=== PATIENT | female | born 1980 | race Two or more races ===

== ENCOUNTER 2016-06-02 05:12 | Inpatient (IN) | payer SELFPAY ==
[~2016-06-02] VITALS: Ht 152.4 cm; Wt 78.3 kg
[2016-06-02] MEDS ORDERED: 0.9 % SODIUM CHLORIDE 10 ML DISP.SYRIN. IV PRN ×2 (06:00→09:30)
[2016-06-02] MEDS ORDERED: ONDANSETRON PF 4 MG/2 ML VIAL. IV PRN ×3 (06:00→09:30)
[2016-06-02] MEDS ORDERED: TERBUTALINE 1 MG/ML VIAL. SQ PRN (06:00)
[2016-06-02] MEDS ORDERED: CITRIC ACID/SODIUM CITRATE 30 ML SOLUTION. PO ONE (06:00)
[2016-06-02] MEDS ORDERED: IBUPROFEN 600 MG TABLET. PO PRN (06:00)
[2016-06-02] MEDS ORDERED: OXYTOCIN 30 UNIT/500 ML PREMIX 500 ML IV PRN ×2 (06:00→09:30)
[2016-06-02] MEDS ORDERED: PROCHLORPERAZINE 10 MG/2 ML VIAL. IV PRN (06:15)
[2016-06-02] MEDS ORDERED: MORPHINE SULFATE 2 MG/ML DISP.SYRIN. IV PRN (06:15)
[2016-06-02] MEDS ORDERED: FENTANYL PF 100 MCG/2 ML VIAL. IV PRN ×2 (06:15)
[2016-06-02 06:27] LABS: BASO # 0.1 x10^3/uL (0.0-0.2); BASO % 1 % (0-3); EOS % 2 % (0-3); HEMOGLOBIN 11.4 g/dL (12.0-15.5); LYMPH # 3.6 x10^3/uL (1.0-4.8); LYMPH % 31 % (24-48); MEAN CORPUSCULAR HEMOGLOBIN 26 pg (25-35); MEAN CORPUSCULAR HGB CONC 33 g/dL (31-37); MEAN CORPUSCULAR VOLUME 81 fL (79-100); MONO % 7 % (0-9); NEUT % 60 % (31-73); PLATELET COUNT 347 x10^3/uL (140-400); RED BLOOD COUNT 4.35 x10^6/uL (3.50-5.40); RED CELL DISTRIBUTION WIDTH 20.8 % (11.5-14.5); WHITE BLOOD COUNT 11.6 x10^3/uL (4.0-11.0)
[2016-06-02] MEDS ORDERED: IV RINGERS,LACTATED 1000ML 1,000 ML IV SCH (06:30)
[2016-06-02] MEDS ORDERED: LIDOCAINE 1% 1 ML SYRINGE. ID PRN (06:30)
[2016-06-02] MEDS ORDERED: HYDROMORPHONE 2 MG/ML VIAL. IV PRN (06:30)
[2016-06-02 06:47] VITALS: BP 131/87
[2016-06-02] MEDS: IV RINGERS,LACTATED 1000ML 1,000 ML IV SCH ×3 (07:28→18:17)
[2016-06-02 07:55] LABS: BILIRUBIN,URINE NEGATIVE (NEG); GLUCOSE,URINE NEGATIVE (NEG); NITRITE,URINE NEGATIVE (NEG); PROTEIN,URINE NEGATIVE (NEG-TRACE); UROBILINOGEN,URINE 0.2 mg/dL (0.2 mg/dL)
[2016-06-02] MEDS ORDERED: MORPHINE PF 5 MG/10 ML VIAL. ONE (08:02)
[2016-06-02 08:14] LABS: BACTERIA,URINE MODERATE /HPF (0-FEW); RBC,URINE 0 /HPF (0-2); SQUAMOUS EPITHELIAL CELL,UR MOD /LPF
[2016-06-02] MEDS ORDERED: FENTANYL PF 100 MCG/2 ML VIAL. ONE (08:17)
[2016-06-02] MEDS ORDERED: FAMOTIDINE 20 MG/2 ML VIAL ONE (08:25)
[2016-06-02] MEDS ORDERED: ONDANSETRON PF 4 MG/2 ML VIAL. ONE (08:25)
[2016-06-02] MEDS ORDERED: OXYTOCIN 10 UNIT/ML VIAL. ONE ×3 (08:28)
[2016-06-02] MEDS ORDERED: PHENYLEPHRINE in 0.9% NACL PF 1 MG/10 ML DISP.SYRIN. IV ONE (09:29)
[2016-06-02] MEDS ORDERED: MAGNESIUM HYDROXIDE 2,400 MG/30 ML ORAL.SUSP. PO PRN (09:30)
[2016-06-02] MEDS ORDERED: MMR per PROTOCOL. MC PRN (09:30)
[2016-06-02] MEDS ORDERED: DOCUSATE SODIUM 100 MG CAPSULE PO PRN (09:30)
[2016-06-02] MEDS ORDERED: DIPHENHYDRAMINE ORAL ELIXIR 12.5 MG/5 ML. PO PRN (09:30)
[2016-06-02] MEDS ORDERED: ZOLPIDEM 5 MG TABLET. PO PRN (09:30)
[2016-06-02] MEDS ORDERED: MAG HYDROX/ALUMINUM HYD/SIMETH 30 ML ORAL.SUSP PO PRN (09:30)
--- NOTE | 2016-06-02 09:31 | PDOC ---
BRIEF OPERATIVE NOTE Pre-Op Diagnosis TIUP Desires RC/S Post-Op Diagnosis Same Procedure Performed RLTC/S Surgeon Collin Anesthesia Type: Regional Blood Loss 800cc Specimens Obtained none Findings Male 10/2 Complications None MADI PAGAN MD Jun 02, 2016 09:31
[2016-06-02 09:56] LABS: PLT ESTIMATE ADEQUATE (ADEQUATE)
[2016-06-02 09:59] LABS: ANISOCYTOSIS MOD
[2016-06-02 12:00] VITALS: BP 111/73
[2016-06-02] MEDS: KETOROLAC TROMETHAMINE 30 MG/ML SYRINGE. IV PRN ×2 (12:18→22:40)
[2016-06-02 12:30] VITALS: BP 114/77
[2016-06-02 13:00] VITALS: BP 118/77
[2016-06-02 14:19] VITALS: BP 116/74
[2016-06-02] MEDS: CEFAZOLIN SODIUM 1 GM in IV NORMAL SALINE 50ML 50 ML IV SCH (18:16)
[2016-06-02 21:00] VITALS: BP 117/78
[2016-06-02] MEDS: IBUPROFEN 800 MG TABLET. PO SCH (22:00)
[2016-06-03] MEDS: CEFAZOLIN SODIUM 1 GM in IV NORMAL SALINE 50ML 50 ML IV SCH (01:45)
[2016-06-03] MEDS: IV RINGERS,LACTATED 1000ML 1,000 ML IV SCH (01:46)
[2016-06-03 02:00] VITALS: BP 112/76
[2016-06-03 05:16] LABS: BASO # 0.1 x10^3/uL (0.0-0.2); BASO % 1 % (0-3); EOS % 1 % (0-3); HEMATOCRIT 27.1 % (36.0-47.0); HEMOGLOBIN 8.8 g/dL (12.0-15.5); LYMPH # 3.3 x10^3/uL (1.0-4.8); LYMPH % 30 % (24-48); MEAN CORPUSCULAR HEMOGLOBIN 27 pg (25-35); MEAN CORPUSCULAR HGB CONC 33 g/dL (31-37); MEAN CORPUSCULAR VOLUME 82 fL (79-100); MONO % 7 % (0-9); NEUT % 61 % (31-73); PLATELET COUNT 249 x10^3/uL (140-400); RED CELL DISTRIBUTION WIDTH 20.5 % (11.5-14.5); WHITE BLOOD COUNT 10.8 x10^3/uL (4.0-11.0)
[2016-06-03] MEDS ORDERED: CEFAZOLIN 2GM PREMIX 50 ML IV ONE (06:00)
[2016-06-03 06:29] VITALS: BP 104/62
[2016-06-03] MEDS: DOCUSATE SODIUM 100 MG CAPSULE. PO PRN (08:34)
[2016-06-03] MEDS: IBUPROFEN 800 MG TABLET. PO SCH ×2 (08:34→14:45)
[2016-06-03] MEDS: OXYCODONE/APAP 5/325 TABLET. PO PRN ×3 (08:34→16:54)
[2016-06-03 12:57] VITALS: BP 110/66
[2016-06-03] MEDS: FERROUS SULFATE 325 MG TABLET PO SCH (16:54)
[2016-06-03 17:31] VITALS: BP 110/68
[2016-06-03 23:00] VITALS: BP 115/79
[2016-06-04] MEDS: OXYCODONE/APAP 5/325 TABLET. PO PRN ×3 (01:22→17:38)
[2016-06-04 05:10] VITALS: BP 129/89
[2016-06-04] MEDS: SIMETHICONE 80 MG TAB.CHEW PO PRN ×2 (05:15→14:04)
[2016-06-04] MEDS: DOCUSATE SODIUM 100 MG CAPSULE. PO PRN (08:23)
[2016-06-04] MEDS: FERROUS SULFATE 325 MG TABLET PO SCH ×2 (08:23→17:34)
[2016-06-04 11:13] VITALS: BP 139/80
[2016-06-04] MEDS: IBUPROFEN 800 MG TABLET. PO SCH (14:04)
[2016-06-04 16:20] VITALS: BP 110/71
--- NOTE | 2016-06-04 18:21 | PDOC ---
OB Progress Note Date of Service 06/04/16 Time of Evaluation 0 Problem List Problems Medical Problems: (1) Status: Acute Notes PT. feeling well. Pain controlled. Lab Laboratory Tests Test 06/03/16 04:57 White Blood Count 10.8x10^3/uL (4.0-11.0) Red Blood Count 3.30x10^6/uL (3.50-5.40) Hemoglobin 8.8g/dL (12.0-15.5) Hematocrit 27.1% (36.0-47.0) Mean Corpuscular Volume 82fL (79-100) Mean Corpuscular Hemoglobin 27pg (25-35) Mean Corpuscular Hemoglobin Concent 33g/dL (31-37) Red Cell Distribution Width 20.5% (11.5-14.5) Platelet Count 249x10^3/uL (140-400) Neutrophils (%) (Auto) 61% (31-73) Lymphocytes (%) (Auto) 30% (24-48) Monocytes (%) (Auto) 7% (0-9) Eosinophils (%) (Auto) 1% (0-3) Basophils (%) (Auto) 1% (0-3) Neutrophils # (Auto) 6.6x10^3uL (1.8-7.7) Lymphocytes # (Auto) 3.3x10^3/uL (1.0-4.8) Monocytes # (Auto) 0.8x10^3/uL (0.0-1.1) Eosinophils # (Auto) 0.1x10^3/uL (0.0-0.7) Basophils # (Auto) 0.1x10^3/uL (0.0-0.2) Medications Current Medications Sodium Chloride 3 ml 3 ml QSHIFT PRN IV AFTER MEDS AND BLOOD DRAWS; Start 06/02 at 06:00; Stop 06/03/16 at 12:32; Status DC Lactated Ringer's (Iv Lactated Ringers) 1,000 ml @ 125 mls/hr Q8H IV Last administered on 06/03/16t 01:46; Start 06/02/16 at 06:00; Stop 06/03/16 at 12:32 ; Status DC Ondansetron HCl (Zofran) 4 mg PRN Q4HRS PRN IV NAUSEA/VOMITING; Start 06/02/16 at 06:00; Stop 06/03/16 at 12:32; Status DC Terbutaline Sulfate 0.25 mg 0.25 mg 1X PRN PRN SQ SEE COMMENTS; Start 06/02/16 at 06:00; Stop 06/03/16 at 05:59; Status DC Oxytocin/Sodium Chloride (Oxytocin Premix Infusion) 500 ml @ 0 mls/hr CONT PRN PRN IV Post delivery bleeding; Start 06/02/16 at 06:00; Stop 06/03/16 at 12:32; Status DC Ibuprofen 600 mg 600 mg PRN Q6HRS PRN PO PAIN; Start 06/02/16 at 06:00 Cefazolin Sodium/ Dextrose (Ancef 2gm Premix) 50 ml @ 100 mls/hr 1X ONCE IV Last administered on 06/02/16 07:27; Start 06/03/16 at 06:00; Stop 06/03/16 at 12:32; Status DC Citric Acid/ Sodium Citrate (Bicitra) 30 ml 1X ONCE PO Last administered on 07:27; Start 06/02/16 at 06:00; Stop 06/02/16 at 06:01; Status DC Ondansetron HCl (Zofran) 4 mg PRN Q6HRS PRN IV Nausea; Start 06/02/16 at 06:15 ; Stop 06/03/16 at 06:14; Status DC Fentanyl Citrate (Fentanyl 2ml Vial) 25 mcg PRN Q5MIN PRN IV MILD PAIN; Start 06/02/16 at 06:15; Stop 06/03/16 at 06:14; Status DC Fentanyl Citrate (Fentanyl 2ml Vial) 50 mcg PRN Q5MIN PRN IV MODERATE PAIN; Start 06/02/16 at 06:15; Stop 06/03/16 at 06:14; Status DC Morphine Sulfate 1 mg 1 mg PRN Q10MIN PRN IV SEVERE PAIN; Start 06/02/16 at 06: 15; Stop 06/03/16 at 06:14; Status DC Lactated Ringer's (Iv Lactated Ringers) 1,000 ml @ 0 mls/hr Q0M IV ; Start at 06:30; Stop 06/02/16 at 06:31; Status DC Lidocaine HCl 2 ml 1X PRN PRN ID IV START; Start 06/02/16 at 06:30; Stop at 06:29; Status DC Hydromorphone HCl (Dilaudid) 0.5 mg PRN Q10MIN PRN IV SEV PAIN,Second choice; Start 06/02/16 at 06:30; Stop 06/03/16 at 06:29; Status DC Prochlorperazine Edisylate (Compazine) 5 mg PACU PRN PRN IV NAUSEA; Start 06/02 at 06:15; Stop 06/03/16 at 06:14; Status DC Morphine Sulfate (Morphine Preservative Free) 5 mg STK-MED ONCE .ROUTE ; Start 06/02/16 at 08:02; Stop 06/02/16 at 08:03; Status DC Fentanyl Citrate (Fentanyl 2ml Vial) 100 mcg STK-MED ONCE .ROUTE ; Start at 08:17; Stop 06/02/16 at 08:18; Status DC Ondansetron HCl (Zofran) 4 mg STK-MED ONCE .ROUTE ; Start 06/02/16 at 08:25; Stop 06/02/16 at 08:26; Status DC Famotidine (Pepcid) 20 mg STK-MED ONCE .ROUTE ; Start 06/02/16 at 08:25; Stop at 08:26; Status DC Oxytocin (Pitocin) 10 unit STK-MED ONCE .ROUTE ; Start 06/02/16 at 08:28; Stop 06/02/16 at 08:29; Status DC Oxytocin (Pitocin) 10 unit STK-MED ONCE .ROUTE ; Start 06/02/16 at 08:28; Stop 06/02/16 at 08:29; Status DC Oxytocin (Pitocin) 10 unit STK-MED ONCE .ROUTE ; Start 06/02/16 at 08:28; Stop 06/02/16 at 08:29; Status DC Phenylephrine HCl 1 mg STK-MED ONCE IV ; Start 06/02/16 at 09:29; Stop 06/02/16 at 09:30; Status DC Sodium Chloride 3 ml 3 ml QSHIFT PRN IV AFTER MEDS AND BLOOD DRAWS; Start 06/02 at 09:30; Stop 06/03/16 at 12:32; Status DC Oxytocin/Sodium Chloride (Oxytocin Premix Infusion) 500 ml @ 125 mls/hr CONT PRN IV EXCESSIVE POST- BLEEDING; Start 06/02/16 at 09:30; Stop 06/02/16 at 17:29; Status DC Ibuprofen (Motrin) 800 mg Q8HRS PO Last administered on 06/04/16 14:04; Start 06/02/16 at 14:00 Ondansetron HCl (Zofran) 4 mg PRN Q6HRS PRN IV NAUSEA/VOMITING; Start 06/02/16 at 09:30; Stop 06/03/16 at 12:32; Status DC Docusate Sodium (Colace) 100 mg PRN BID PRN PO CONSTIPATION; Start 06/02/16 at 09:30; Stop 06/02/16 at 13:57; Status DC Magnesium Hydroxide (Milk Of Magnesia) 2,400 mg PRN DAILY PRN PO CONSTIPATION; Start 06/02/16 at 09:30 Al Hydroxide/Mg Hydroxide (Mylanta Plus Xs) 30 ml PRN Q4HRS PRN PO HEARTBURN / GAS; Start 06/02/16 at 09:30 Simethicone (Gas-X) 80 mg PRN AFTMEALHC PRN PO GAS / BLOATING Last administered on 06/04/16 14:04; Start 06/02/16 at 09:30 Diphenhydramine HCl (Benadryl Oral Elixir) 12.5 mg PRN Q6HRS PRN PO ITCHING Last administered on 06/02/16 22:46; Start 06/02/16 at 09:30 Ferrous Sulfate (Feosol) 325 mg BIDWMEALS PO Last administered on 06/04/16 17: 34; Start 06/02/16 at 17:00 Zolpidem Tartrate (Ambien) 5 mg PRN QHS PRN PO INSOMNIA, MAY REPEAT X1; Start 06/02/16 at 09:30 Info (Do NOT chart on this placeholder) 1 ea PRN 1X PRN MC SEE COMMENTS; Start 06/02/16 at 09:30; Stop 06/03/16 at 12:32; Status DC Info (Do NOT chart on this placeholder) 1 ea PRN 1X PRN MC SEE COMMENTS; Start 06/02/16 at 09:30; Stop 06/03/16 at 12:32; Status DC Oxycodone/ Acetaminophen (Percocet 5/325) 1 tab PRN Q4HRS PRN PO MILD PAIN Last administered on 06/03/16 12:42; Start 06/02/16 at 09:30 Oxycodone/ Acetaminophen 2 tab 2 tab PRN Q4HRS PRN PO MODERATE PAIN, SEVERE PAIN Last administered on 06/04/16 17:38; Start 06/02/16 at 09:30 Cefazolin Sodium/ Sodium Chloride (Ancef/Iv Sodium Chloride 0.9% 50ml) 50 ml @ 100 mls/hr Q8HRS IV Last administered on 06/03/16 01:45; Start 06/02/16 at 18: 00; Stop 06/03/16 at 06:29; Status DC Ketorolac Tromethamine (Toradol) 30 mg PRN Q6HRS PRN IV PAIN Last administered on 06/02/16 22:40; Start 06/02/16 at 11:30; Stop 06/03/16 at 12:32; Status DC Docusate Sodium (Colace) 100 mg PRN BID PRN PO CONSTIPATION Last administered on 06/04/16 08:23; Start 06/02/16 at 14:00 Exam Abd; soft, mild tenderness, fundus firm Incision site: clean, dry and intact Assessment POD#2 s/p c/s Plan of Care: Continue current Tx, Mgmt KRYSTA BETH Jr, MD Jun 04, 2016 18:21
[2016-06-04 21:21] VITALS: BP 113/79
[2016-06-05] MEDS: OXYCODONE/APAP 5/325 TABLET. PO PRN ×2 (02:13→12:05)
[2016-06-05 06:09] VITALS: BP 114/76
[2016-06-05] MEDS: DOCUSATE SODIUM 100 MG CAPSULE. PO PRN (08:30)
[2016-06-05] MEDS: FERROUS SULFATE 325 MG TABLET PO SCH (08:30)
[2016-06-05] MEDS: IBUPROFEN 800 MG TABLET. PO SCH (08:30)
[2016-06-05 11:00] VITALS: BP 124/82
--- NOTE | 2016-06-05 17:21 | PDOC ---
OB Progress Note Date of Service 06/05/16 Time of Evaluation 1720 Problem List Problems Medical Problems: (1) Status: Acute Notes PT. feeling well. No complaints. Medications Current Medications Sodium Chloride 3 ml 3 ml QSHIFT PRN IV AFTER MEDS AND BLOOD DRAWS; Start 06/02 at 06:00; Stop 06/03/16 at 12:32; Status DC Lactated Ringer's (Iv Lactated Ringers) 1,000 ml @ 125 mls/hr Q8H IV Last administered on 06/03/16 01:46; Start 06/02/16 at 06:00; Stop 06/03/16 at 12:32 ; Status DC Ondansetron HCl (Zofran) 4 mg PRN Q4HRS PRN IV NAUSEA/VOMITING; Start 06/02/16 at 06:00; Stop 06/03/16 at 12:32; Status DC Terbutaline Sulfate 0.25 mg 0.25 mg 1X PRN PRN SQ SEE COMMENTS; Start 06/02/16 at 06:00; Stop 06/03/16 at 05:59; Status DC Oxytocin/Sodium Chloride (Oxytocin Premix Infusion) 500 ml @ 0 mls/hr CONT PRN PRN IV Post delivery bleeding; Start 06/02/16 at 06:00; Stop 06/03/16 at 12:32; Status DC Ibuprofen 600 mg 600 mg PRN Q6HRS PRN PO PAIN; Start 06/02/16 at 06:00 Cefazolin Sodium/ Dextrose (Ancef 2gm Premix) 50 ml @ 100 mls/hr 1X ONCE IV Last administered on 06/02/16 07:27; Start 06/03/16 at 06:00; Stop 06/03/16 at 12:32; Status DC Citric Acid/ Sodium Citrate (Bicitra) 30 ml 1X ONCE PO Last administered on 07:27; Start 06/02/16 at 06:00; Stop 06/02/16 at 06:01; Status DC Ondansetron HCl (Zofran) 4 mg PRN Q6HRS PRN IV Nausea; Start 06/02/16 at 06:15 ; Stop 06/03/16 at 06:14; Status DC Fentanyl Citrate (Fentanyl 2ml Vial) 25 mcg PRN Q5MIN PRN IV MILD PAIN; Start 06/02/16 at 06:15; Stop 06/03/16 at 06:14; Status DC Fentanyl Citrate (Fentanyl 2ml Vial) 50 mcg PRN Q5MIN PRN IV MODERATE PAIN; Start 06/02/16 at 06:15; Stop 06/03/16 at 06:14; Status DC Morphine Sulfate 1 mg 1 mg PRN Q10MIN PRN IV SEVERE PAIN; Start 06/02/16 at 06: 15; Stop 06/03/16 at 06:14; Status DC Lactated Ringer's (Iv Lactated Ringers) 1,000 ml @ 0 mls/hr Q0M IV ; Start at 06:30; Stop 06/02/16 at 06:31; Status DC Lidocaine HCl 2 ml 1X PRN PRN ID IV START; Start 06/02/16 at 06:30; Stop at 06:29; Status DC Hydromorphone HCl (Dilaudid) 0.5 mg PRN Q10MIN PRN IV SEV PAIN,Second choice; Start 06/02/16 at 06:30; Stop 06/03/16 at 06:29; Status DC Prochlorperazine Edisylate (Compazine) 5 mg PACU PRN PRN IV NAUSEA; Start 06/02 at 06:15; Stop 06/03/16 at 06:14; Status DC Morphine Sulfate (Morphine Preservative Free) 5 mg STK-MED ONCE .ROUTE ; Start 06/02/16 at 08:02; Stop 06/02/16 at 08:03; Status DC Fentanyl Citrate (Fentanyl 2ml Vial) 100 mcg STK-MED ONCE .ROUTE ; Start at 08:17; Stop 06/02/16 at 08:18; Status DC Ondansetron HCl (Zofran) 4 mg STK-MED ONCE .ROUTE ; Start 06/02/16 at 08:25; Stop 06/02/16 at 08:26; Status DC Famotidine (Pepcid) 20 mg STK-MED ONCE .ROUTE ; Start 06/02/16 at 08:25; Stop at 08:26; Status DC Oxytocin (Pitocin) 10 unit STK-MED ONCE .ROUTE ; Start 06/02/16 at 08:28; Stop 06/02/16 at 08:29; Status DC Oxytocin (Pitocin) 10 unit STK-MED ONCE .ROUTE ; Start 06/02/16 at 08:28; Stop 06/02/16 at 08:29; Status DC Oxytocin (Pitocin) 10 unit STK-MED ONCE .ROUTE ; Start 06/02/16 at 08:28; Stop 06/02/16 at 08:29; Status DC Phenylephrine HCl 1 mg STK-MED ONCE IV ; Start 06/02/16 at 09:29; Stop 06/02/16 at 09:30; Status DC Sodium Chloride 3 ml 3 ml QSHIFT PRN IV AFTER MEDS AND BLOOD DRAWS; Start 06/02 at 09:30; Stop 06/03/16 at 12:32; Status DC Oxytocin/Sodium Chloride (Oxytocin Premix Infusion) 500 ml @ 125 mls/hr CONT PRN IV EXCESSIVE POST- BLEEDING; Start 06/02/16 at 09:30; Stop 06/02/16 at 17:29; Status DC Ibuprofen (Motrin) 800 mg Q8HRS PO Last administered on 06/05/16 08:30; Start 06/02/16 at 14:00 Ondansetron HCl (Zofran) 4 mg PRN Q6HRS PRN IV NAUSEA/VOMITING; Start 06/02/16 at 09:30; Stop 06/03/16 at 12:32; Status DC Docusate Sodium (Colace) 100 mg PRN BID PRN PO CONSTIPATION; Start 06/02/16 at 09:30; Stop 06/02/16 at 13:57; Status DC Magnesium Hydroxide (Milk Of Magnesia) 2,400 mg PRN DAILY PRN PO CONSTIPATION; Start 06/02/16 at 09:30 Al Hydroxide/Mg Hydroxide (Mylanta Plus Xs) 30 ml PRN Q4HRS PRN PO HEARTBURN / GAS; Start 06/02/16 at 09:30 Simethicone (Gas-X) 80 mg PRN AFTMEALHC PRN PO GAS / BLOATING Last administered on 06/04/16 14:04; Start 06/02/16 at 09:30 Diphenhydramine HCl (Benadryl Oral Elixir) 12.5 mg PRN Q6HRS PRN PO ITCHING Last administered on 3/27/17at 22:46; Start 06/02/16 at 09:30 Ferrous Sulfate (Feosol) 325 mg BIDWMEALS PO Last administered on 06/05/16 08: 30; Start 06/02/16 at 17:00 Zolpidem Tartrate (Ambien) 5 mg PRN QHS PRN PO INSOMNIA, MAY REPEAT X1; Start 06/02/16 at 09:30 Info (Do NOT chart on this placeholder) 1 ea PRN 1X PRN MC SEE COMMENTS; Start 06/02/16 at 09:30; Stop 06/03/16 at 12:32; Status DC Info (Do NOT chart on this placeholder) 1 ea PRN 1X PRN MC SEE COMMENTS; Start 06/02/16 at 09:30; Stop 06/03/16 at 12:32; Status DC Oxycodone/ Acetaminophen (Percocet 5/325) 1 tab PRN Q4HRS PRN PO MILD PAIN Last administered on 06/03/16 12:42; Start 06/02/16 at 09:30 Oxycodone/ Acetaminophen 2 tab 2 tab PRN Q4HRS PRN PO MODERATE PAIN, SEVERE PAIN Last administered on 06/05/16 12:05; Start 06/02/16 at 09:30 Cefazolin Sodium/ Sodium Chloride (Ancef/Iv Sodium Chloride 0.9% 50ml) 50 ml @ 100 mls/hr Q8HRS IV Last administered on 06/03/16 01:45; Start 06/02/16 at 18: 00; Stop 06/03/16 at 06:29; Status DC Ketorolac Tromethamine (Toradol) 30 mg PRN Q6HRS PRN IV PAIN Last administered on 06/02/16 22:40; Start 06/02/16 at 11:30; Stop 06/03/16 at 12:32; Status DC Docusate Sodium (Colace) 100 mg PRN BID PRN PO CONSTIPATION Last administered on 06/05/16 08:30; Start 06/02/16 at 14:00 Exam Abd: soft, non tender, fundus firm Incision site: clean, dry and intact Assessment POD#3 s/p c/s Plan of Care: See new orders (D/ c home.) KRYSTA BETH Jr, MD Jun 05, 2016 17:21
--- NOTE | 2016-06-05 17:22 | DISCH ---
DISCHARGE INSTRUCTIONS Condition on Discharge Condition on Discharge: Stable Activity After Discharge Activity Instructions for Disc: Activity as tolerated Lifting Instructions after Dis: No heavy lifting Driving Instructions after Dis: Do not drive today Diet after Discharge Diet after Discharge: Regular Contacting the DRJakub after DC Call your doctor for: Concerns you may have Follow-Up Follow up with: Dr. Polanco in 1 week. KRYSTA BETH Jr, MD Jun 05, 2016 17:22
[2016-06-05] MEDS ORDERED: NAPR500T3 PO (17:23)
[2016-06-05] MEDS ORDERED: OXYC-323 PO (17:23)
[2016-06-05] MEDS ORDERED: DOCU-27 PO (17:23)
[2016-06-05 17:35] VITALS: BP 128/82
== END 2016-06-05 18:00 | disposition home or self-care (01) | DRG 766 ==
LOC: 3 SO LND 05:12
PROVIDERS: ADMIT Specialist; ATTEND Specialist
PROC: 10D00Z1 Extraction of Products of Conception, Low, Open Approach (ICD-10-PCS; principal; 2016-06-02)
DX: O34.211 Maternal care for low transverse scar from previous cesarean delivery (principal); Z3A.00 Weeks of gestation of pregnancy not specified; Z37.0 Single live birth
CPT/HCPCS: 36415; 81001; 85007; 85027; 86593; 86850; 86900; 86901; 87086; J0690; J1885; J2270; J2370; J2405; J2590; J3010; J7120; S0028

== ENCOUNTER 2018-04-28 20:02 | Inpatient (IN) | payer SELFPAY ==
[~2018-04-28] VITALS: Ht 154.9 cm; Wt 76.9 kg
[~2018-04-28 20:02] MED LIST: DOCU-109 PO; NAPR-514 PO; OXYC1TAB15 PO
[2018-04-28] MEDS ORDERED: IPRATRPIUM/ALBUTEROL 0.5/2.5MG 3 ML NEBU. NEB ONE ×2 (21:15→22:00)
--- NOTE | 2018-04-28 21:52 | PHYS DOC ---
Adult General Chief Complaint Chief Complaint: SHORTNESS OF BREATH HPI HPI Patient is a 38 year old female who presents with 4 days of shortness of air, cough with white/clear mucus. Patient denies body aches, fever, nausea, vomiting , diarrhea, chest pain, dizziness, syncope. (CAMILLE DUENAS APRN) Review of Systems Review of Systems Constitutional: Denies fever or chills [] Eyes: Denies change in visual acuity, redness, or eye pain [] HENT: nasal congestion or denies sore throat [] Respiratory: cough or shortness of breath [] Cardiovascular: No additional information not addressed in HPI [] GI: Denies abdominal pain, nausea, vomiting, bloody stools or diarrhea [] : Denies dysuria or hematuria [] Musculoskeletal: Denies back pain or joint pain [] Integument: Denies rash or skin lesions [] Neurologic: Denies headache, focal weakness or sensory changes [] All other systems were reviewed and found to be within normal limits, except as documented in this note. (CAMILLE DUENAS APRN) Current Medications Current Medications Current Medications Medications (Trade) Dose Ordered Sig/Neftaly Start Time Stop Time Status Last Admin Dose Admin Albuterol/ Ipratropium (Duoneb) 3 ml 1X ONCE 04/28/18 22:00 04/28/18 22:01 DC 04/28/18 22:46 3 ML Prednisone (Prednisone) 50 mg 1X ONCE 04/28/18 22:00 04/28/18 22:01 DC 04/28/18 22:31 50 MG Sodium Chloride 1,000 ml @ 1,000 mls/hr 1X ONCE 04/28/18 23:15 04/29/18 00:14 DC 04/29/18 00:45 1,000 MLS/HR (CHAR GERARDO DO) Allergies Allergies Allergies Coded Allergies Type Severity Reaction Last Updated Verified No Known Drug Allergies 06/02/16 No (CHAR GERARDO DO) Physical Exam Physical Exam Constitutional: Well developed, well nourished, no acute distress, non-toxic appearance. [] HENT: Normocephalic, atraumatic, bilateral external ears normal, oropharynx moist, no oral exudates, nose normal. Throat is pink without exudates. Bilateral tympanic pearly white.[] Eyes: PERRLA, EOMI, conjunctiva normal, no discharge. [] Neck: Normal range of motion, no tenderness, supple, no stridor. [] Cardiovascular:Heart rate regular rhythm, no murmur [] Lungs & Thorax: Bilateral breath sounds inspiratory expiratory wheezes to auscultation [] Abdomen: Bowel sounds normal, soft, no tenderness, no masses, no pulsatile masses. [] Skin: Warm, dry, no erythema, no rash. [] Back: No tenderness, no CVA tenderness. [] Extremities: No tenderness, no cyanosis, no clubbing, ROM intact, no edema. [] Neurologic: Alert and oriented X 3, normal motor function, normal sensory function, no focal deficits noted. [] Psychologic: Affect normal, judgement normal, mood normal. [] (CAMILLE DUENAS APRN) Current Patient Data Vital Signs Vital Signs Date Time Temp Pulse Resp B/P (MAP) Pulse Ox O2 Delivery O2 Flow Rate FiO2 04/28/18 23:28 112 20 139/80 (99) 97 Room Air 04/28/18 21:15 98.5 98.5 (GERARDO,CHAR Marmolejo DO) Lab Values Laboratory Tests Test 04/28/18 21:15 04/28/18 21:22 04/28/18 21:35 04/28/18 22:35 Urine Collection Type Unknown Urine Color Yellow Urine Clarity Clear Urine pH 5.0 Urine Specific Everly 1.020 Urine Protein Negative mg/dL (NEG-TRACE) Urine Glucose (UA) Negative mg/dL (NEG) Urine Ketones (Stick) Negative mg/dL (NEG) Urine Blood Moderate (NEG) Urine Nitrite Negative (NEG) Urine Bilirubin Negative (NEG) Urine Urobilinogen Dipstick 0.2 mg/dL (0.2 mg/dL) Urine Leukocyte Esterase Negative (NEG) Urine RBC 20-40 /HPF (0-2) Urine WBC 0 /HPF (0-4) Urine Squamous Epithelial Cells Occ /LPF Urine Bacteria 0 /HPF (0-FEW) Urine Hyaline Casts Occasional /HPF Urine Mucus Slight /LPF POC Urine HCG, Qualitative Hcg negative (Negative) White Blood Count 16.7 x10^3/uL (4.0-11.0) H Red Blood Count 5.09 x10^6/uL (3.50-5.40) Hemoglobin 13.2 g/dL (12.0-15.5) Hematocrit 40.8 % (36.0-47.0) Mean Corpuscular Volume 80 fL (79-100) Mean Corpuscular Hemoglobin 26 pg (25-35) Mean Corpuscular Hemoglobin Concent 32 g/dL (31-37) Red Cell Distribution Width 13.3 % (11.5-14.5) Platelet Count 493 x10^3/uL (140-400) H Neutrophils (%) (Auto) 69 % (31-73) Lymphocytes (%) (Auto) 22 % (24-48) L Monocytes (%) (Auto) 5 % (0-9) Eosinophils (%) (Auto) 4 % (0-3) H Basophils (%) (Auto) 1 % (0-3) Neutrophils # (Auto) 11.5 x10^3uL (1.8-7.7) H Lymphocytes # (Auto) 3.7 x10^3/uL (1.0-4.8) Monocytes # (Auto) 0.8 x10^3/uL (0.0-1.1) Eosinophils # (Auto) 0.6 x10^3/uL (0.0-0.7) Basophils # (Auto) 0.1 x10^3/uL (0.0-0.2) Sodium Level 140 mmol/L (136-145) Potassium Level 3.8 mmol/L (3.5-5.1) Chloride Level 103 mmol/L (98-107) Carbon Dioxide Level 24 mmol/L (21-32) Anion Gap 13 (6-14) Blood Urea Nitrogen 13 mg/dL (7-20) Creatinine 0.9 mg/dL (0.6-1.0) Estimated GFR (Cockcroft-Gault) 69.3 Glucose Level 122 mg/dL (70-99) H Lactic Acid Level 2.2 mmol/L (0.4-2.0) H Calcium Level 9.1 mg/dL (8.5-10.1) Influenza Type A Antigen Negative (NEGATIVE) Influenza Type B Antigen Negative (NEGATIVE) Laboratory Tests 04/28/18 21:35 Laboratory Tests 04/28/18 21:35 (CHAR GERARDO DO) EKG EKG Sinus rhythm and no STEMI.[] Interpretation Time: [address] Gerardo (CAMILLE DUENAS APRN) Radiology/Procedures Radiology/Procedures [] (CAMILLE DUENAS APRN) Impressions: [facility] [address] [place] [address] IMAGING REPORT Signed PATIENT: SHAKEEL SAN ACCOUNT: [id number] : 1980 LOCATION: ER AGE: 38 SEX: F EXAM STATUS: REG ER ORD. PHYSICIAN: CAMILLE DUENAS APRN REASON: soa PROCEDURE: CHEST PA & LATERAL Chest radiograph 04/28/2018 9:45 PM INDICATION: Shortness of breath and cough COMPARISON: None available TECHNIQUE: Frontal and lateral views of the chest are provided. FINDINGS: The cardiomediastinal silhouette is within normal limits. There are no pleural effusions. There is no pulmonary vascular congestion. There is no pneumothorax. The lungs are clear. No significant osseous abnormality is identified. IMPRESSION: No acute cardiopulmonary process. Electronically signed by: Anastasiia Alexander MD (04/28/2018 10:44 PM) [facility] DICTATED and SIGNED BY: ANASTASIIA ALEXANDER MD DATE: 04/28/182243 (CAMILLE DUENAS APRN) Course & Med Decision Making Course & Med Decision Making Patient is a 38 year old female who presents with 4 days of shortness of air, cough with white/clear mucus. Patient denies body aches, fever, nausea, vomiting , diarrhea, chest pain, dizziness, syncope. States history of Asthma. Abdomen is soft and nontender. EKG shows sinus tachycardia with no STEMI. Alert and oriented. Skin pink warm and dry. Mucous membranes are moist. 97% on room air. Ambulatory with a steady gait. No extremity swelling. Lungs have inspiratory expiratory wheezes throughout all lobes. PERRLA. Speaks in full clear sentences. WBC is elevated at 16.7, rest of blood work unremarkable. Chest xray shows no acute findings. Flu negative. Urinalysis negative. Lactic acid 2.2. Patient has received 2L of NS. Patient to be admitted for Sepsis, Asthma exacerbation by Dr Moreno. She will receive Zosyn and Levaquin. Patient states she is feeling better and her lungs are clear after breathing treatments. Patients Heart rate is 115 and sating at 97% on room air. (CAMILLE DUENAS APRN) Dragon Disclaimer Dragon Disclaimer This electronic medical record was generated, in whole or in part, using a voice recognition dictation system. (CAMILLE DUENAS APRN) Departure Departure Impression: Primary Impression: Sepsis Additional Impression: Asthma exacerbation Disposition: ADMITTED INPATIENT Admitting Physician: Other (CAMILLE DUENAS APRN) Condition: STABLE Referrals: NO PCP (PCP) Scripts Ciprofloxacin Hcl (CIPRO) 500 Mg Tablet 1 TAB PO BID for acute bronchitis with asthma, #8 TAB Prov: JADIEL SNEED MD 04/30/18 Albuterol Sulfate (VENTOLIN HFA INHALER) 18 Gm Hfa.aer.ad 1 PUFF INH Q4HRS for FOR ASTHMA, #1 INHALER 0 Refills Prov: JADIEL SNEED MD 04/30/18 Budesonide/Formoterol Fumarate (SYMBICORT 80-4.5 MCG INHALER) 10.2 Gm Hfa.aer.ad 1 PUFF IH BID for asthma, #3 INHALER Prov: JADIEL SNEED MD 04/30/18 Prednisone (PREDNISONE ) 10 Mg Tablet 10 MG PO UD for asthma exacerbation, #30 TAB 0 Refills Take 5 tablets by mouth daily for 2 days, then take 4 tablets by mouth daily for 2 days, then take 3 tablets by mouth daily for 2 days, then take 2 tablets by mouth daily for 2 days, then take 1 tablets by mouth daily for 2 days, then stop. Prov: JADIEL SNEED MD 04/30/18 Guaifenesin/Dextromethorphan (GUAIFENESIN DM SYRUP) 5 Ml Syrup 10 ML PO PRN Q6HRS PRN for COUGH, #20 MISC Prov: JADIEL SNEED MD 04/30/18 Attending Signature Attending Signature I have reviewed the PA/ENTRY LEVEL FINANCE's note and plan of care. I was available for consultation as needed during the patient's visit in the emergency department. I agree with the clinical impression, plan, and disposition. (CHAR GERARDO DO) Problem Qualifiers Primary Impression: Sepsis Sepsis type: sepsis due to unspecified organism Qualified Codes: A41.9 - Sepsis, unspecified organism Additional Impression: Asthma exacerbation Asthma severity: mild Asthma persistence: intermittent Qualified Codes: J45.21 - Mild intermittent asthma with (acute) exacerbation CAMILLE DUENAS APRN Apr 28, 2018 21:52 CHAR GERARDO DO May 03, 2018 13:47
[2018-04-28 21:58] LABS: BASO # 0.1 x10^3/uL (0.0-0.2); BASO % 1 % (0-3); EOS # 0.6 x10^3/uL (0.0-0.7); EOS % 4 % (0-3); HEMATOCRIT 40.8 % (36.0-47.0); HEMOGLOBIN 13.2 g/dL (12.0-15.5); LYMPH # 3.7 x10^3/uL (1.0-4.8); LYMPH % 22 % (24-48); MEAN CORPUSCULAR HEMOGLOBIN 26 pg (25-35); MEAN CORPUSCULAR HGB CONC 32 g/dL (31-37); MEAN CORPUSCULAR VOLUME 80 fL (79-100); MONO # 0.8 x10^3/uL (0.0-1.1); MONO % 5 % (0-9); NEUT # 11.5 x10^3uL (1.8-7.7); NEUT % 69 % (31-73); PLATELET COUNT 493 x10^3/uL (140-400); RED BLOOD COUNT 5.09 x10^6/uL (3.50-5.40); RED CELL DISTRIBUTION WIDTH 13.3 % (11.5-14.5); WHITE BLOOD COUNT 16.7 x10^3/uL (4.0-11.0)
[2018-04-28] MEDS ORDERED: predniSONE 10 MG TABLET PO ONE (22:00)
[2018-04-28] MEDS ORDERED: IV NORMAL SALINE 1000ML BAG 1,000 ML IV ONE ×2 (22:00→23:15)
[2018-04-28 22:06] LABS: CALCIUM 9.1 mg/dL (8.5-10.1); CREATININE 0.9 mg/dL (0.6-1.0); GFR 69.3; POTASSIUM 3.8 mmol/L (3.5-5.1)
--- NOTE | 2018-04-28 22:47 | RAD ---
Chest radiograph 04/28/2018 9:45 PM INDICATION: Shortness of breath and cough COMPARISON: None available TECHNIQUE: Frontal and lateral views of the chest are provided. FINDINGS: The cardiomediastinal silhouette is within normal limits. There are no pleural effusions. There is no pulmonary vascular congestion. There is no pneumothorax. The lungs are clear. No significant osseous abnormality is identified. IMPRESSION: No acute cardiopulmonary process. Electronically signed by: Elyssa Davis MD (04/28/2018 10:44 PM) [facility]
[2018-04-28 22:57] LABS: INFLUENZA A PATIENT NEGATIVE (NEGATIVE); INFLUENZA B PATIENT NEGATIVE (NEGATIVE)
[2018-04-28 23:05] LABS: BILIRUBIN,URINE NEGATIVE (NEG); CLARITY,URINE CLEAR; COLOR,URINE YELLOW; NITRITE,URINE NEGATIVE (NEG); PROTEIN,URINE NEGATIVE (NEG-TRACE); UROBILINOGEN,URINE 0.2 mg/dL (0.2 mg/dL)
[2018-04-28 23:11] LABS: BACTERIA,URINE 0 /HPF (0-FEW); HYALINE CASTS, URINE OCCASIONAL /HPF; RBC,URINE 20-40 /HPF (0-2); SQUAMOUS EPITHELIAL CELL,UR OCC /LPF; WBC,URINE 0 /HPF (0-4)
[2018-04-29] VITALS (7 sets, daily range): BP systolic 134–148; BP diastolic 82–99
[2018-04-29] MEDS ORDERED: PIPERACILLIN/TAZOBACTAM 3.375 GM in IV NORMAL SALINE 50ML 50 ML IV ONE ×2
[2018-04-29] MEDS ORDERED: fentaNYL PF VIAL 100 MCG/2 ML VIAL IV PRN
[2018-04-29] MEDS ORDERED: levOFLOXacin PER PHARMACY. MC PRN
[2018-04-29] MEDS ORDERED: ONDANSETRON PF 4 MG/2 ML VIAL. IV PRN
[2018-04-29] MEDS ORDERED: PIP/TAZO PER PHARMACY MC PRN
[2018-04-29] MEDS ORDERED: IV NORMAL SALINE 1000ML BAG 1,000 ML IV SCH ×4 (02:45→03:45)
[2018-04-29] MEDS: IV NORMAL SALINE 1000ML BAG 1,000 ML IV SCH ×4 (05:54→23:30)
[2018-04-29] MEDS ORDERED: PIPERACILLIN/TAZOBACTAM 3.375 GM in IV NORMAL SALINE 50ML 50 ML IV SCH (06:00)
[2018-04-29] MEDS: ACETAMINOPHEN 325 MG TABLET. PO PRN ×2 (06:07→11:43)
[2018-04-29] MEDS ORDERED: IPRATRPIUM/ALBUTEROL 0.5/2.5MG 3 ML NEBU. NEB SCH (08:00)
[2018-04-29] MEDS ORDERED: LORazepam 0.5 MG TABLET PO PRN (08:15)
[2018-04-29] MEDS ORDERED: IV NORMAL SALINE 1000ML BAG 1,000 ML IV ONE (08:15)
[2018-04-29] MEDS ORDERED: ALBUTEROL SULFATE 2.5 MG/3 ML NEBU. NEB PRN (08:45)
[2018-04-29] MEDS ORDERED: BUDESONIDE 0.5 MG/2 ML NEBU. NEB ONE (08:45)
[2018-04-29] MEDS ORDERED: methylPREDNISolone SOD SUCC PF 40 MG/ML VIAL. IV ONE (08:45)
--- NOTE | 2018-04-29 08:45 | PDOC1 ---
History and Physical Date of Admission Date of Admission DATE: 04/29/18 TIME: 08:44 Source Source: Chart review, Patient History of Present Illness History of Present Illness Macey is a 38 year old female from [place], admit form ER with dyspnea, wheeze, cough and resp distress. She complains of tingling in her hands this AM, and may be anxious and hyperventilating, she was hoping to leave the hospital today She has 4 days of shortness of air, cough with white/clear mucus. Patient denies body aches, fever, nausea, vomiting, diarrhea, chest pain, dizziness, syncope. Past Medical History Cardiovascular: No pertinent hx Pulmonary: Asthma Heme/Onc: No pertinent hx Hepatobiliary: No pertinent hx Psych: Anxiety Rheumatologic: No pertinent hx ENT: No pertinent hx Renal/: No pertinent hx Endocrine: No pertinent hx Family History Family History: No Significant Social History Smoke: No ALCOHOL: none Current Problem List Problem List Problems Medical Problems: (1) Asthma exacerbation Status: Acute (2) Sepsis Status: Acute Current Medications Current Medications Current Medications Albuterol/ Ipratropium (Duoneb) 3 ml 1X ONCE NEB Last administered on at 21:34; Start 04/28/18 at 21:15; Stop 04/28/18 at 21:17; Status DC Albuterol/ Ipratropium (Duoneb) 3 ml 1X ONCE NEB Last administered on at 22:46; Start 04/28/18 at 22:00; Stop 04/28/18 at 22:01; Status DC Prednisone (Prednisone) 50 mg 1X ONCE PO Last administered on 04/28/18at 22:31 ; Start 04/28/18 at 22:00; Stop 04/28/18 at 22:01; Status DC Sodium Chloride 1,000 ml @ 1,000 mls/hr 1X ONCE IV Last administered on at 22:32; Start 04/28/18 at 22:00; Stop 04/28/18 at 22:59; Status DC Sodium Chloride 1,000 ml @ 1,000 mls/hr 1X ONCE IV Last administered on at 00:45; Start 04/28/18 at 23:15; Stop 04/29/18 at 00:14; Status DC Piperacillin Sod/ Tazobactam Sod (Zosyn Per Pharmacy) 1 each PRN DAILY PRN MC SEE COMMENTS; Start 04/29/18 at 00:00 Levofloxacin/ Dextrose (Levaquin Per Pharmacy) 1 each PRN DAILY PRN MC SEE COMMENTS; Start 04/29/18 at 00:00 Ondansetron HCl (Zofran) 4 mg PRN Q8HRS PRN IV NAUSEA/VOMITING; Start 04/29/18 at 00:00; Stop 04/29/18 at 23:59 Fentanyl Citrate (Fentanyl 2ml Vial) 50 mcg PRN Q1HR PRN IV PAIN; Start at 00:00; Stop 04/29/18 at 23:59 Acetaminophen (Tylenol) 650 mg PRN Q4HRS PRN PO FEVER Last administered on 04/29at 06:07; Start 04/29/18 at 00:00; Stop 04/29/18 at 23:59 Albuterol/ Ipratropium (Duoneb) 3 ml RTQID NEB Last administered on 04/29/18at 07:34; Start 04/29/18 at 08:00; Stop 04/29/18 at 08:35; Status DC Piperacillin Sod/ Tazobactam Sod 3.375 gm/Sodium Chloride 50 ml @ 100 mls/hr 1X ONCE IV Last administered on 04/29/18at 00:49; Start 04/29/18 at 00:00; Stop 04/29/18 at 00:29; Status DC Levofloxacin/ Dextrose 100 ml @ 100 mls/hr 1X ONCE IV Last administered on at 02:17; Start 04/29/18 at 01:00; Stop 04/29/18 at 01:59; Status DC Piperacillin Sod/ Tazobactam Sod 3.375 gm/Sodium Chloride 50 ml @ 100 mls/hr Q6HRS IV Last administered on 04/29/18at 05:54; Start 04/29/18 at 06:00 Levofloxacin/ Dextrose 100 ml @ 100 mls/hr Q24H IV ; Start 04/29/18 at 21:00 Sodium Chloride 1,000 ml @ 0 mls/hr Q0M IV ; Start 04/29/18 at 02:45; Stop at 02:45; Status DC Sodium Chloride 1,000 ml @ 150 mls/hr Q6H40M IV Last administered on at 05:54; Start 04/29/18 at 03:30 Sodium Chloride 0 ml @ 1,000 mls/hr Q0M IV ; Start 04/29/18 at 02:45; Status UNV Sodium Chloride 1,000 ml @ 1,000 mls/hr Q1H IV ; Start 04/29/18 at 03:45; Status UNV Sodium Chloride 1,000 ml @ 1,000 mls/hr Q1H IV Last administered on 04/29/18at 03:34; Start 04/29/18 at 03:00; Stop 04/29/18 at 03:59; Status DC Sodium Chloride 1,000 ml @ 125 mls/hr 1X ONCE IV Last administered on at 08:28; Start 04/29/18 at 08:15; Stop 04/29/18 at 16:14 Lorazepam (Ativan) 0.5 mg PRN 1X PRN PO ANXIETY / AGITATION; Start 04/29/18 at 08:15 Albuterol/ Ipratropium (Duoneb) 3 ml Q4HRS W/A NEB ; Start 04/29/18 at 14:00 Budesonide (Pulmicort) 0.5 mg RTBID NEB ; Start 04/29/18 at 20:00; Status UNV Budesonide (Pulmicort) 0.5 mg 1X ONCE NEB ; Start 04/29/18 at 08:45; Stop 04/29 at 08:46; Status UNV Albuterol Sulfate (Ventolin Neb Soln) 2.5 mg PRN Q4HRS PRN NEB SHORTNESS OF BREATH; Start 04/29/18 at 08:45 Methylprednisolone Sodium Succinate (SOLU-Medrol 40MG VIAL) 40 mg 1X ONCE IV ; Start 04/29/18 at 08:45; Stop 04/29/18 at 08:46; Status UNV Prednisone (Prednisone) 40 mg DAILY PO ; Start 04/29/18 at 17:00; Status UNV Active Scripts Active Naproxen 500 Mg Tablet 1 Tab PO BID Allergies Allergies: Coded Allergies: No Known Drug Allergies (Unverified , 06/02/16) ROS General: No: Chills, Night Sweats, Fatigue, Malaise, Appetite, Other PSYCHOLOGICAL ROS: No: Anxiety, Behavioral Disorder, Concentration difficultie , Decreased libido, Depression, Disorientation, Hallucinations, Hostility, Irritablity, Memory difficulties, Mood Swings, Obsessive thoughts, Physical abuse, Sexual abuse, Sleep disturbances, Suicidal ideation, Other HEENT: No: Heacaches, Visual Changes, Hearing change, Nasal congestion, Nasal discharge, Oral lesions, Sinus pain, Sore Throat, Epistaxis, Sneezing, Snoring, Tinnitus, Vertigo, Vocal changes, Other Respiratory: No: Cough, Hemoptysis, Orthopnea, Pleuritic Pain, Shortness of breath, SOB with excertion, Sputum Changes, Stridor, Tachypnea, Wheezing, Other Cardiovascular: No Chest Pain, No Palpitations, No Orthopnea, No Paroxysmal Noc. Dyspnea, No Edema, No Lt Headedness, No Other Gastrointestinal: No Nausea, No Vomiting, No Abdominal Pain, No Diarrhea, No Constipation, No Melena, No Hematochezia, No Other Genitourinary: No Dysuria, No Frequency, No Incontinence, No Hematuria, No Retention, No Discharge, No Urgency, No Pain, No Flank Pain, No Other, No , No , No , No , No , No , No Musculoskeletal: No Gait Disturbance, No Joint Pain, No Joint Stiffness, No Joint Swelling, No Muscle Pain, No Muscular Weakness, No Pain In:, No Swelling In:, No Other Skin: No Dry Skin, No Eczema, No Hair Changes, No Lumps, No Mole Changes, No Mottling, No Nail Changes, No Pruritus, No Rash, No Skin Lesion Changes, No Other, No Acne Physical Exam General: Alert, Oriented X3, Cooperative, mild distress, moderate distress HEENT: EOMI Lungs: Normal air movement, Other (wheeze and rales, right upper is worst) Abdomen: Normal bowel sounds, Soft Rectal Exam: not examined Extremities: No cyanosis, No edema Skin: No significant lesion Neuro: Normal gait, Normal tone, Sensation intact Psych/Mental Status: Mood NL Vitals Vitals Vital Signs Date Time Temp Pulse Resp B/P (MAP) Pulse Ox O2 Delivery O2 Flow Rate FiO2 04/29/18 07:34 97 Room Air 04/29/18 07:00 100.9 129 18 134/86 (102) 100.9 Labs Labs Laboratory Tests Test 04/28/18 21:15 2/20/19 21:22 04/28/18 21:35 04/28/18 22:35 Urine Collection Type Unknown Urine Color Yellow Urine Clarity Clear Urine pH 5.0 Urine Specific [place] 1.020 Urine Protein Negative mg/dL (NEG-TRACE) Urine Glucose (UA) Negative mg/dL (NEG) Urine Ketones (Stick) Negative mg/dL (NEG) Urine Blood Moderate (NEG) Urine Nitrite Negative (NEG) Urine Bilirubin Negative (NEG) Urine Urobilinogen Dipstick 0.2 mg/dL (0.2 mg/dL) Urine Leukocyte Esterase Negative (NEG) Urine RBC 20-40 /HPF (0-2) Urine WBC 0 /HPF (0-4) Urine Squamous Epithelial Cells Occ /LPF Urine Bacteria 0 /HPF (0-FEW) Urine Hyaline Casts Occasional /HPF Urine Mucus Slight /LPF Bedside Urine HCG, Qualitative Hcg negative (Negative) White Blood Count 16.7 x10^3/uL (4.0-11.0) Red Blood Count 5.09 x10^6/uL (3.50-5.40) Hemoglobin 13.2 g/dL (12.0-15.5) Hematocrit 40.8 % (36.0-47.0) Mean Corpuscular Volume 80 fL (79-100) Mean Corpuscular Hemoglobin 26 pg (25-35) Mean Corpuscular Hemoglobin Concent 32 g/dL (31-37) Red Cell Distribution Width 13.3 % (11.5-14.5) Platelet Count 493 x10^3/uL (140-400) Neutrophils (%) (Auto) 69 % (31-73) Lymphocytes (%) (Auto) 22 % (24-48) Monocytes (%) (Auto) 5 % (0-9) Eosinophils (%) (Auto) 4 % (0-3) Basophils (%) (Auto) 1 % (0-3) Neutrophils # (Auto) 11.5 x10^3uL (1.8-7.7) Lymphocytes # (Auto) 3.7 x10^3/uL (1.0-4.8) Monocytes # (Auto) 0.8 x10^3/uL (0.0-1.1) Eosinophils # (Auto) 0.6 x10^3/uL (0.0-0.7) Basophils # (Auto) 0.1 x10^3/uL (0.0-0.2) Sodium Level 140 mmol/L (136-145) Potassium Level 3.8 mmol/L (3.5-5.1) Chloride Level 103 mmol/L (98-107) Carbon Dioxide Level 24 mmol/L (21-32) Anion Gap 13 (6-14) Blood Urea Nitrogen 13 mg/dL (7-20) Creatinine 0.9 mg/dL (0.6-1.0) Estimated GFR (Cockcroft-Gault) 69.3 Glucose Level 122 mg/dL (70-99) Lactic Acid Level 2.2 mmol/L (0.4-2.0) Calcium Level 9.1 mg/dL (8.5-10.1) Influenza Type A Antigen Negative (NEGATIVE) Influenza Type B Antigen Negative (NEGATIVE) Test 04/29/18 01:40 04/29/18 07:11 Lactic Acid Level 4.8 mmol/L (0.4-2.0) 4.2 mmol/L (0.4-2.0) Laboratory Tests Test 04/28/18 21:15 04/28/18 21:22 04/28/18 21:35 04/28/18 22:35 Urine Collection Type Unknown Urine Color Yellow Urine Clarity Clear Urine pH 5.0 Urine Specific [place] 1.020 Urine Protein Negative mg/dL (NEG-TRACE) Urine Glucose (UA) Negative mg/dL (NEG) Urine Ketones (Stick) Negative mg/dL (NEG) Urine Blood Moderate (NEG) Urine Nitrite Negative (NEG) Urine Bilirubin Negative (NEG) Urine Urobilinogen Dipstick 0.2 mg/dL (0.2 mg/dL) Urine Leukocyte Esterase Negative (NEG) Urine RBC 20-40 /HPF (0-2) Urine WBC 0 /HPF (0-4) Urine Squamous Epithelial Cells Occ /LPF Urine Bacteria 0 /HPF (0-FEW) Urine Hyaline Casts Occasional /HPF Urine Mucus Slight /LPF Bedside Urine HCG, Qualitative Hcg negative (Negative) White Blood Count 16.7 x10^3/uL (4.0-11.0) Red Blood Count 5.09 x10^6/uL (3.50-5.40) Hemoglobin 13.2 g/dL (12.0-15.5) Hematocrit 40.8 % (36.0-47.0) Mean Corpuscular Volume 80 fL (79-100) Mean Corpuscular Hemoglobin 26 pg (25-35) Mean Corpuscular Hemoglobin Concent 32 g/dL (31-37) Red Cell Distribution Width 13.3 % (11.5-14.5) Platelet Count 493 x10^3/uL (140-400) Neutrophils (%) (Auto) 69 % (31-73) Lymphocytes (%) (Auto) 22 % (24-48) Monocytes (%) (Auto) 5 % (0-9) Eosinophils (%) (Auto) 4 % (0-3) Basophils (%) (Auto) 1 % (0-3) Neutrophils # (Auto) 11.5 x10^3uL (1.8-7.7) Lymphocytes # (Auto) 3.7 x10^3/uL (1.0-4.8) Monocytes # (Auto) 0.8 x10^3/uL (0.0-1.1) Eosinophils # (Auto) 0.6 x10^3/uL (0.0-0.7) Basophils # (Auto) 0.1 x10^3/uL (0.0-0.2) Sodium Level 140 mmol/L (136-145) Potassium Level 3.8 mmol/L (3.5-5.1) Chloride Level 103 mmol/L (98-107) Carbon Dioxide Level 24 mmol/L (21-32) Anion Gap 13 (6-14) Blood Urea Nitrogen 13 mg/dL (7-20) Creatinine 0.9 mg/dL (0.6-1.0) Estimated GFR (Cockcroft-Gault) 69.3 Glucose Level 122 mg/dL (70-99) Lactic Acid Level 2.2 mmol/L (0.4-2.0) Calcium Level 9.1 mg/dL (8.5-10.1) Influenza Type A Antigen Negative (NEGATIVE) Influenza Type B Antigen Negative (NEGATIVE) Test 04/29/18 01:40 04/29/18 07:11 Lactic Acid Level 4.8 mmol/L (0.4-2.0) 4.2 mmol/L (0.4-2.0) VTE Prophylaxis Ordered VTE Prophylaxis Devices: No VTE Pharmacological Prophylaxi: Yes Assessment/Plan Assessment/Plan acute asthma exacerbation SIRS, treat as sepsis, sinusitis or subclincal pneumonia obese, BMI 32 admit JADIEL SNEED MD Apr 29, 2018 08:45
[2018-04-29 08:58] LABS: BASO % 0 % (0-3); EOS % 0 % (0-3); HEMATOCRIT 38.6 % (36.0-47.0); HEMOGLOBIN 12.3 g/dL (12.0-15.5); LYMPH # 1.6 x10^3/uL (1.0-4.8); LYMPH % 13 % (24-48); MEAN CORPUSCULAR HEMOGLOBIN 26 pg (25-35); MEAN CORPUSCULAR HGB CONC 32 g/dL (31-37); MEAN CORPUSCULAR VOLUME 81 fL (79-100); MONO # 0.2 x10^3/uL (0.0-1.1); MONO % 2 % (0-9); NEUT # 10.4 x10^3uL (1.8-7.7); NEUT % 85 % (31-73); PLATELET COUNT 478 x10^3/uL (140-400); RED BLOOD COUNT 4.74 x10^6/uL (3.50-5.40); RED CELL DISTRIBUTION WIDTH 13.3 % (11.5-14.5); WHITE BLOOD COUNT 12.2 x10^3/uL (4.0-11.0)
[2018-04-29 09:03] LABS: ALBUMIN 3.7 g/dL (3.4-5.0); ALBUMIN/GLOBULIN RATIO 0.9 (1.0-1.7); CALCIUM 8.5 mg/dL (8.5-10.1); CREATININE 0.9 mg/dL (0.6-1.0); GFR 69.3; POTASSIUM 4.3 mmol/L (3.5-5.1); TOTAL BILIRUBIN 0.4 mg/dL (0.2-1.0); TOTAL PROTEIN 7.7 g/dL (6.4-8.2)
--- NOTE | 2018-04-29 09:11 | EKG ---
[facility] [address] [place] [address] Test Date: 2018-04-28 Test Time: 21:16:11 Pat Name: SHAKEEL SAN Department: Room: 524 1 Gender: Certified Phlebotomist: : 1980 Requested By: MARGOT CULP Order Number: [id number] Reading MD: Jaime Victoria MD Measurements Intervals [place] Rate: P: [place]: QRS: QRSD: T: QT: QTc: Interpretive Statements SINUS TACHYCARDIA Electronically Signed On 05-10-2018 12:03:28 RED LEADER by Jaime Victoria MD
--- NOTE | 2018-04-29 09:47 | PDOC ---
Infectious Disease Note Vital Sign Vital Signs Vital Signs Date Time Temp Pulse Resp B/P (MAP) Pulse Ox O2 Delivery O2 Flow Rate FiO2 04/29/18 07:34 97 Room Air 04/29/18 07:00 100.9 129 18 134/86 (102) 100.9 Labs Lab Laboratory Tests Test 04/28/18 21:15 04/28/18 21:22 04/28/18 21:35 04/28/18 22:35 Urine Collection Type Unknown Urine Color Yellow Urine Clarity Clear Urine pH 5.0 Urine Specific [place] 1.020 Urine Protein Negative mg/dL (NEG-TRACE) Urine Glucose (UA) Negative mg/dL (NEG) Urine Ketones (Stick) Negative mg/dL (NEG) Urine Blood Moderate (NEG) Urine Nitrite Negative (NEG) Urine Bilirubin Negative (NEG) Urine Urobilinogen Dipstick 0.2 mg/dL (0.2 mg/dL) Urine Leukocyte Esterase Negative (NEG) Urine RBC 20-40 /HPF (0-2) Urine WBC 0 /HPF (0-4) Urine Squamous Epithelial Cells Occ /LPF Urine Bacteria 0 /HPF (0-FEW) Urine Hyaline Casts Occasional /HPF Urine Mucus Slight /LPF Bedside Urine HCG, Qualitative Hcg negative (Negative) White Blood Count 16.7 x10^3/uL (4.0-11.0) Red Blood Count 5.09 x10^6/uL (3.50-5.40) Hemoglobin 13.2 g/dL (12.0-15.5) Hematocrit 40.8 % (36.0-47.0) Mean Corpuscular Volume 80 fL (79-100) Mean Corpuscular Hemoglobin 26 pg (25-35) Mean Corpuscular Hemoglobin Concent 32 g/dL (31-37) Red Cell Distribution Width 13.3 % (11.5-14.5) Platelet Count 493 x10^3/uL (140-400) Neutrophils (%) (Auto) 69 % (31-73) Lymphocytes (%) (Auto) 22 % (24-48) Monocytes (%) (Auto) 5 % (0-9) Eosinophils (%) (Auto) 4 % (0-3) Basophils (%) (Auto) 1 % (0-3) Neutrophils # (Auto) 11.5 x10^3uL (1.8-7.7) Lymphocytes # (Auto) 3.7 x10^3/uL (1.0-4.8) Monocytes # (Auto) 0.8 x10^3/uL (0.0-1.1) Eosinophils # (Auto) 0.6 x10^3/uL (0.0-0.7) Basophils # (Auto) 0.1 x10^3/uL (0.0-0.2) Sodium Level 140 mmol/L (136-145) Potassium Level 3.8 mmol/L (3.5-5.1) Chloride Level 103 mmol/L (98-107) Carbon Dioxide Level 24 mmol/L (21-32) Anion Gap 13 (6-14) Blood Urea Nitrogen 13 mg/dL (7-20) Creatinine 0.9 mg/dL (0.6-1.0) Estimated GFR (Cockcroft-Gault) 69.3 Glucose Level 122 mg/dL (70-99) Lactic Acid Level 2.2 mmol/L (0.4-2.0) Calcium Level 9.1 mg/dL (8.5-10.1) Influenza Type A Antigen Negative (NEGATIVE) Influenza Type B Antigen Negative (NEGATIVE) Test 04/29/18 01:40 04/29/18 07:11 Lactic Acid Level 4.8 mmol/L (0.4-2.0) 4.2 mmol/L (0.4-2.0) White Blood Count 12.2 x10^3/uL (4.0-11.0) Red Blood Count 4.74 x10^6/uL (3.50-5.40) Hemoglobin 12.3 g/dL (12.0-15.5) Hematocrit 38.6 % (36.0-47.0) Mean Corpuscular Volume 81 fL (79-100) Mean Corpuscular Hemoglobin 26 pg (25-35) Mean Corpuscular Hemoglobin Concent 32 g/dL (31-37) Red Cell Distribution Width 13.3 % (11.5-14.5) Platelet Count 478 x10^3/uL (140-400) Neutrophils (%) (Auto) 85 % (31-73) Lymphocytes (%) (Auto) 13 % (24-48) Monocytes (%) (Auto) 2 % (0-9) Eosinophils (%) (Auto) 0 % (0-3) Basophils (%) (Auto) 0 % (0-3) Neutrophils # (Auto) 10.4 x10^3uL (1.8-7.7) Lymphocytes # (Auto) 1.6 x10^3/uL (1.0-4.8) Monocytes # (Auto) 0.2 x10^3/uL (0.0-1.1) Eosinophils # (Auto) 0.0 x10^3/uL (0.0-0.7) Basophils # (Auto) 0.0 x10^3/uL (0.0-0.2) Sodium Level 139 mmol/L (136-145) Potassium Level 4.3 mmol/L (3.5-5.1) Chloride Level 103 mmol/L (98-107) Carbon Dioxide Level 19 mmol/L (21-32) Anion Gap 17 (6-14) Blood Urea Nitrogen 8 mg/dL (7-20) Creatinine 0.9 mg/dL (0.6-1.0) Estimated GFR (Cockcroft-Gault) 69.3 BUN/Creatinine Ratio 9 (6-20) Glucose Level 138 mg/dL (70-99) Calcium Level 8.5 mg/dL (8.5-10.1) Total Bilirubin 0.4 mg/dL (0.2-1.0) Aspartate Amino Transf (AST/SGOT) 27 U/L (15-37) Alanine Aminotransferase (ALT/SGPT) 37 U/L (14-59) Alkaline Phosphatase 68 U/L (46-116) Total Protein 7.7 g/dL (6.4-8.2) Albumin 3.7 g/dL (3.4-5.0) Albumin/Globulin Ratio 0.9 (1.0-1.7) Objective Assessment Asthma exacerbation ? Viral process - Resp viral panel unavailable Fever Leukocytosis Lactic acidosis Plan Plan of Care Cont Vanc and Levofloxacin but po Strep and legionella antigens/Procalcitonin and Mycoplasma IgM D/c Zosyn Now on Steroids affect WBC and glucose F/u labs and cults Thank you # [id number] LALIT PAZ MD Apr 29, 2018 09:47
[2018-04-29 10:49] LABS: MYCOPLASMA PATIENT NEGATIVE (NEGATIVE)
[2018-04-29] MEDS: IPRATRPIUM/ALBUTEROL 0.5/2.5MG 3 ML NEBU. NEB SCH ×3 (11:10→19:31)
[2018-04-29] MEDS: ENOXAPARIN 40 MG/0.4 ML SYRINGE. SQ SCH (11:28)
[2018-04-29] MEDS: predniSONE 20 MG TABLET PO SCH (11:29)
--- NOTE | 2018-04-29 12:05 | CONS ---
DATE OF CONSULTATION: ATTENDING PHYSICIAN: Dr. Moreno. REASON FOR CONSULTATION: Dyspnea. HISTORY OF PRESENT ILLNESS: The patient is 38-year-old female from [place]. She does not speak Upper Sor[place]. She was brought into the hospital with dyspnea, cough and some wheezing. The patient was given breathing treatment. She feels better. She denies any tobacco history. I am unable to obtain much history from the patient. PAST MEDICAL HISTORY: Asthma. PAST SURGICAL HISTORY: No recent surgeries. SOCIAL HISTORY: Nonsmoker. ALLERGIES: None. MEDICATIONS: Reviewed, as listed in the MRAD, including antibiotics, bronchodilators and oral prednisone. PHYSICAL EXAMINATION: VITAL SIGNS: Reviewed. T-max of 100.9. Blood pressure stable, pulse ox 95% on room air. HEENT: Sclerae nonicteric. NECK: Supple. LUNGS: With faint wheezes posteriorly. CARDIOVASCULAR: Regular rate. ABDOMEN: Soft, nontender. EXTREMITIES: No pitting edema. LABORATORY DATA: Influenza screen negative. Mycoplasma serology negative. Lactic acid was 2.2, now 4.8 and now down to 4.2. White cell count of 16.7, now down to 12.2. Her chest x-ray was reviewed. No definite infiltrates seen. IMPRESSION: 1. Dyspnea secondary to acute exacerbation of asthma. 2. Acute bronchitis with no definite consolidation seen on the chest x-ray. 3. Fever. Influenza screen negative. It could be viral fever. RECOMMENDATIONS: 1. Continue with present antibiotic, Levaquin. 2. Continue with present bronchodilators, DuoNebs and Pulmicort. 3. Lovenox for DVT prophylaxis. 4. Oral prednisone. 5. Obtain procalcitonin level. 6. Clinically appears to be much better. Could be discharged home in the next 24 hours if no further fever. LIZETH NICOLAS MD DR: MELODY/maximilian JOB#: [id number] / [id number]
--- NOTE | 2018-04-29 12:48 | CONS ---
DATE OF CONSULTATION: 04/29/2018 INFECTIOUS DISEASE CONSULTATION ROOM: 524. REQUESTING PHYSICIAN: Dr. Menjivar. REASON FOR CONSULTATION: Questionable sepsis. HISTORY OF PRESENT ILLNESS: The patient is a pleasant 38-year-old female with a history of asthma. She presents to the Emergency Room at [facility] with several days of coughing with white sputum and some generalized aches particularly in her hands. She denies any ill contacts, but she has been having some sinus drainage, congestion and some increasing cough. She presented to the Emergency Room on the had a temperature initially of 98.5, but increased to 100.9. White blood cell count on arrival was 16.7, although improved to 12.2 this morning. The influenza screen was negative. Urinalysis was clean. Lactic acid was 2.2 initially, but increased to 4.8, but then come back down to 4.2. Chest x-ray was obtained and showed no acute pulmonary process. Currently, she is sitting upright in bed, states she is feeling a little bit better. Denies any diarrhea. No dysuria, frequency or urgency. No rashes. PAST MEDICAL HISTORY: Positive for asthma. PAST SURGICAL HISTORY: Positive for previous . REVIEW OF SYSTEMS: Otherwise negative except for which is mentioned above. SOCIAL HISTORY: She has 3 children, ages 1, 4 and 14, all healthy. She also has a dog. No cats. Denies any ill contacts. Denies any smoking. FAMILY HISTORY: Noncontributory. CURRENT MEDICATIONS: Include vancomycin, levofloxacin, Zosyn, Solu-Medrol and then prednisone, albuterol, Atrovent, Pulmicort. PHYSICAL EXAMINATION: VITAL SIGNS: T-current, T-max 100.9, pulse 129, respirations 18, blood pressure 134/86, satting 97% on room air. CONSTITUTIONAL: She is pleasant. She is cooperative. She is smiling. She is in no acute distress. She sat up easily in bed. HEENT: Pupils equal and reactive. Oral cavity, pharynx without thrush. She had some partial dentures. NECK: Supple, no JVD. LUNGS: Had some mild wheeze. HEART: S1, S2, mild tachy. ABDOMEN: Soft, nontender, no guarding, no rebound with positive bowel sounds. EXTREMITIES: No clubbing, cyanosis or gross edema. SKIN: Warm to touch without generalized signs of rash. MUSCULOSKELETAL: She has no joint inflammation. NEUROLOGIC: She is nonfocal, moves all extremities, answers questions appropriately. PSYCHIATRIC: Affect is pleasant. LABORATORY DATA: White count 12.2, hemoglobin 12.3, platelets of 478, neutrophils of 85, lymphs are 13. Most recent lactate of 4.2 down from 4.8. Glucose is 138. Normal liver function study tests. Influenza screen was negative. Creatinine of 0.9. Urine was clean. She is not . Chest x-ray reviewed in history of present illness. IMPRESSION: 1. Asthma exacerbation. 2. Questionable viral process with a respiratory viral panel unavailable. 3. Fever. 4. Leukocytosis. 5. Lactic acidosis. RECOMMENDATIONS: For now, continue vancomycin as well as levofloxacin, but change it to p.o. We will check strep and Legionella antigens as well as procalcitonin and mycoplasma IgM. Discontinue the Zosyn. Now, she is on steroids, will affect her sugars as well as her white blood cell count. We will follow up labs and cultures. Thank you for allowing me to see and participate in this patient's care. If you have any questions, please do not hesitate to contact me. LALIT PAZ MD DR: SG/maximilian JOB#: [id number] / [id number]
[2018-04-29] MEDS: guaiFENesin DM 200MG/20MG 10 ML SYRUP PO PRN (18:27)
[2018-04-29] MEDS: BUDESONIDE 0.5 MG/2 ML NEBU. NEB SCH (19:31)
[2018-04-29] MEDS: LACTOBACILLUS RHAMNOSUS GG 1 CAPSULE. PO SCH (20:47)
[2018-04-30] MEDS: guaiFENesin DM 200MG/20MG 10 ML SYRUP PO PRN (02:17)
[2018-04-30 03:00] VITALS: BP 140/85
[2018-04-30] MEDS ORDERED: ACETAMINOPHEN 325 MG TABLET. PO PRN ×2 (03:15→03:30)
[2018-04-30] MEDS: IV NORMAL SALINE 1000ML BAG 1,000 ML IV SCH (03:32)
[2018-04-30 07:00] VITALS: BP 144/87
[2018-04-30] MEDS: BUDESONIDE 0.5 MG/2 ML NEBU. NEB SCH (07:10)
[2018-04-30] MEDS: IPRATRPIUM/ALBUTEROL 0.5/2.5MG 3 ML NEBU. NEB SCH ×2 (07:10→11:10)
--- NOTE | 2018-04-30 08:49 | PDOC ---
Infectious Disease Note Subjective Subjective Much better. no fever and wanting to go home Less cough No N/d/SOA/rash Vital Sign Vital Signs Vital Signs Date Time Temp Pulse Resp B/P (MAP) Pulse Ox O2 Delivery O2 Flow Rate FiO2 04/30/18 07:10 99 Room Air 04/30/18 07:00 97.9 106 14 144/87 (106) 97.9 Physical Exam PHYSICAL EXAM CONSTITUTIONAL: She is pleasant. She is cooperative. She is smiling. She is in no acute distress. She sat up easily in bed. HEENT: Pupils equal and reactive. Oral cavity, pharynx without thrush. She had some partial dentures. NECK: Supple, no JVD. LUNGS: CTA HEART: S1, S2, mild tachy. ABDOMEN: Soft, nontender, no guarding, no rebound with positive bowel sounds. EXTREMITIES: No clubbing, cyanosis or gross edema. SKIN: Warm to touch without generalized signs of rash. MUSCULOSKELETAL: She has no joint inflammation. NEUROLOGIC: She is nonfocal, moves all extremities, answers questions appropriately. PSYCHIATRIC: Affect is pleasant. Labs Lab Laboratory Tests Test 04/30/18 03:00 Lactic Acid Level 3.2 mmol/L (0.4-2.0) Micro Microbiology 04/29/18 Blood Culture - Preliminary, Resulted NO GROWTH AFTER 1 DAY Objective Assessment Asthma exacerbation ? Viral process - Resp viral panel unavailable/Mycoplasma neg Fever Leukocytosis Lactic acidosis Plan Plan of Care Can d/c home on Levofloxacin for 4 more days (starting 05/01) from ID standpoint Strep and legionella antigens outpatient Can F/u with primary/Pulm or ID next week ID to sign off LALIT PAZ MD Apr 30, 2018 08:49
[2018-04-30] MEDS: predniSONE 20 MG TABLET PO SCH (08:50)
[2018-04-30] MEDS: LACTOBACILLUS RHAMNOSUS GG 1 CAPSULE. PO SCH (08:50)
[2018-04-30] MEDS ORDERED: CIPR500T94 PO (10:13)
[2018-04-30] MEDS ORDERED: VENTOLIN HFA18 GM INH (10:13)
[2018-04-30] MEDS ORDERED: GUAI5SYR PO (10:13)
[2018-04-30] MEDS ORDERED: PRED-220 PO (10:13)
[2018-04-30] MEDS ORDERED: BUDE10.22 IH (10:13)
[2018-04-30] MEDS: ENOXAPARIN 40 MG/0.4 ML SYRINGE. SQ SCH (11:00)
--- NOTE | 2018-04-30 11:52 | PDOC ---
PULMONARY PROGRESS NOTES Subjective much better Vitals Vital Signs Date Time Temp Pulse Resp B/P (MAP) Pulse Ox O2 Delivery O2 Flow Rate FiO2 04/30/18 11:11 Room Air 04/30/18 07:10 99 04/30/18 07:00 97.9 106 14 144/87 (106) 97.9 General: Alert Lungs: Clear Cardiovascular: S1 Abdomen: Soft Neuro Exam: Alert Extremities: No Edema Skin: Warm Labs Laboratory Tests Test 04/28/18 21:15 04/28/18 21:22 04/28/18 21:35 04/28/18 22:35 Urine Collection Type Unknown Urine Color Yellow Urine Clarity Clear Urine pH 5.0 Urine Specific [place] 1.020 Urine Protein Negative mg/dL (NEG-TRACE) Urine Glucose (UA) Negative mg/dL (NEG) Urine Ketones (Stick) Negative mg/dL (NEG) Urine Blood Moderate (NEG) Urine Nitrite Negative (NEG) Urine Bilirubin Negative (NEG) Urine Urobilinogen Dipstick 0.2 mg/dL (0.2 mg/dL) Urine Leukocyte Esterase Negative (NEG) Urine RBC 20-40 /HPF (0-2) Urine WBC 0 /HPF (0-4) Urine Squamous Epithelial Cells Occ /LPF Urine Bacteria 0 /HPF (0-FEW) Urine Hyaline Casts Occasional /HPF Urine Mucus Slight /LPF Bedside Urine HCG, Qualitative Hcg negative (Negative) White Blood Count 16.7 x10^3/uL (4.0-11.0) Red Blood Count 5.09 x10^6/uL (3.50-5.40) Hemoglobin 13.2 g/dL (12.0-15.5) Hematocrit 40.8 % (36.0-47.0) Mean Corpuscular Volume 80 fL (79-100) Mean Corpuscular Hemoglobin 26 pg (25-35) Mean Corpuscular Hemoglobin Concent 32 g/dL (31-37) Red Cell Distribution Width 13.3 % (11.5-14.5) Platelet Count 493 x10^3/uL (140-400) Neutrophils (%) (Auto) 69 % (31-73) Lymphocytes (%) (Auto) 22 % (24-48) Monocytes (%) (Auto) 5 % (0-9) Eosinophils (%) (Auto) 4 % (0-3) Basophils (%) (Auto) 1 % (0-3) Neutrophils # (Auto) 11.5 x10^3uL (1.8-7.7) Lymphocytes # (Auto) 3.7 x10^3/uL (1.0-4.8) Monocytes # (Auto) 0.8 x10^3/uL (0.0-1.1) Eosinophils # (Auto) 0.6 x10^3/uL (0.0-0.7) Basophils # (Auto) 0.1 x10^3/uL (0.0-0.2) Sodium Level 140 mmol/L (136-145) Potassium Level 3.8 mmol/L (3.5-5.1) Chloride Level 103 mmol/L (98-107) Carbon Dioxide Level 24 mmol/L (21-32) Anion Gap 13 (6-14) Blood Urea Nitrogen 13 mg/dL (7-20) Creatinine 0.9 mg/dL (0.6-1.0) Estimated GFR (Cockcroft-Gault) 69.3 Glucose Level 122 mg/dL (70-99) Lactic Acid Level 2.2 mmol/L (0.4-2.0) Calcium Level 9.1 mg/dL (8.5-10.1) Influenza Type A Antigen Negative (NEGATIVE) Influenza Type B Antigen Negative (NEGATIVE) Test 04/29/18 01:40 04/29/18 07:11 04/30/18 03:00 Lactic Acid Level 4.8 mmol/L (0.4-2.0) 4.2 mmol/L (0.4-2.0) 3.2 mmol/L (0.4-2.0) White Blood Count 12.2 x10^3/uL (4.0-11.0) Red Blood Count 4.74 x10^6/uL (3.50-5.40) Hemoglobin 12.3 g/dL (12.0-15.5) Hematocrit 38.6 % (36.0-47.0) Mean Corpuscular Volume 81 fL (79-100) Mean Corpuscular Hemoglobin 26 pg (25-35) Mean Corpuscular Hemoglobin Concent 32 g/dL (31-37) Red Cell Distribution Width 13.3 % (11.5-14.5) Platelet Count 478 x10^3/uL (140-400) Neutrophils (%) (Auto) 85 % (31-73) Lymphocytes (%) (Auto) 13 % (24-48) Monocytes (%) (Auto) 2 % (0-9) Eosinophils (%) (Auto) 0 % (0-3) Basophils (%) (Auto) 0 % (0-3) Neutrophils # (Auto) 10.4 x10^3uL (1.8-7.7) Lymphocytes # (Auto) 1.6 x10^3/uL (1.0-4.8) Monocytes # (Auto) 0.2 x10^3/uL (0.0-1.1) Eosinophils # (Auto) 0.0 x10^3/uL (0.0-0.7) Basophils # (Auto) 0.0 x10^3/uL (0.0-0.2) Sodium Level 139 mmol/L (136-145) Potassium Level 4.3 mmol/L (3.5-5.1) Chloride Level 103 mmol/L (98-107) Carbon Dioxide Level 19 mmol/L (21-32) Anion Gap 17 (6-14) Blood Urea Nitrogen 8 mg/dL (7-20) Creatinine 0.9 mg/dL (0.6-1.0) Estimated GFR (Cockcroft-Gault) 69.3 BUN/Creatinine Ratio 9 (6-20) Glucose Level 138 mg/dL (70-99) Calcium Level 8.5 mg/dL (8.5-10.1) Total Bilirubin 0.4 mg/dL (0.2-1.0) Aspartate Amino Transf (AST/SGOT) 27 U/L (15-37) Alanine Aminotransferase (ALT/SGPT) 37 U/L (14-59) Alkaline Phosphatase 68 U/L (46-116) Total Protein 7.7 g/dL (6.4-8.2) Albumin 3.7 g/dL (3.4-5.0) Albumin/Globulin Ratio 0.9 (1.0-1.7) Procalcitonin < 0.10 ng/mL (0.00-0.10) Mycoplasma Serology (LAB) Negative (NEGATIVE) Laboratory Tests Test 04/30/18 03:00 Lactic Acid Level 3.2 mmol/L (0.4-2.0) Medications Active Scripts Medications Dose Route/Sig Max Daily Dose Days Date Category Dose Instructions Cipro (Ciprofloxacin Hcl) 500 Mg Tablet 1 Tab PO BID 04/30/18 Rx Ventolin Hfa Inhaler (Albuterol Sulfate) 18 Gm Hfa.aer.ad 1 Puff INH Q4HRS 04/30/18 Rx Symbicort 80-4.5 Mcg Inhaler (Budesonide/Formoterol Fumarate) 10.2 Gm Hfa.aer.ad 1 Puff IH BID 04/30/18 Rx Prednisone (Prednisone) 10 Mg Tablet 10 Mg PO UD 04/30/18 Rx Take 5 tablets by mouth daily for 2 days, then take 4 tablets by mouth daily for 2 days, then take 3 tablets by mouth daily for 2 days, then take 2 tablets by mouth daily for 2 days, then take 1 tablets by mouth daily for 2 days, then stop. Guaifenesin Dm Syrup (Guaifenesin/Dextromethorphan) 5 Ml Syrup 10 Ml PO PRN Q6HRS PRN 04/30/18 Rx Impression . 1. Dyspnea secondary to acute exacerbation of asthma. 2. Acute bronchitis with no definite consolidation seen on the chest x-ray. 3. Fever. Influenza screen negative. It could be viral fever. Plan . 1. Much better 2. Continue with present bronchodilators, 3. Lovenox for DVT prophylaxis. 4. Oral prednisone. 5. Normal procalcitonin level. 6. Clinically appears to be much better. ok with [facility] LIZETH NICOLAS MD Apr 30, 2018 11:52
--- NOTE | 2018-04-30 11:55 | NUR ---
Discharge teaching provided written and verbal to pt's ,understanding verbalized. Pt dismissed to home with all belongings accompanied by her . Ambulated to exit with [facility]BA at 1150.
== END 2018-04-30 11:50 | disposition home or self-care (01) | DRG 872 ==
LOC: ER 20:02 → 5 NORTH 23:46
PROVIDERS: ADMIT Internal Medicine; ATTEND Internal Medicine
DX: A41.9 Sepsis, unspecified organism (principal); E87.2 Acidosis; J45.901 Unspecified asthma with (acute) exacerbation; E66.9 Obesity, unspecified; Z68.32 Body mass index [BMI] 32.0-32.9, adult; J20.9 Acute bronchitis, unspecified; F41.9 Anxiety disorder, unspecified; J32.9 Chronic sinusitis, unspecified
CPT/HCPCS: 36415; 71046; 80048; 80053; 81001; 81025; 83605; 84145; 85025; 86738; 87040; 87449; 87804; 93005; 94640; 94760; 96361; 96365; J1650; J1956; J2543; J2920; J7030; J7512; J7620; J7626; 99285-25